=== PATIENT | female | born 1940 | race Caucasian/White ===

== ENCOUNTER 2017-11-12 20:31 | Emergency (ER) | payer OTHER ==
[~2017-11-12] VITALS: Ht 152.4 cm; Wt 59.0 kg
[~2017-11-12 20:31] MED LIST: LANTUS100 U/ML; NOVOLOG100 U/ML
[2017-11-12] MEDS ORDERED: NOVOLOG100 UNIT/1 (21:01)
[2017-11-12] MEDS ORDERED: LANTUS SOL100 UNIT/1 (21:01)
[2017-11-12] MEDS ORDERED: DIOVAN160 M1 (21:01)
[2017-11-12] MEDS ORDERED: TOPROL XL25 MG (21:02)
[2017-11-12] MEDS ORDERED: NIFE60TA3 (21:02)
[2017-11-12] MEDS ORDERED: SKELAXIN800 MG PO (22:51)
[2017-11-12] MEDS ORDERED: CELEBREX100 MG PO (22:51)
== END 2017-11-12 23:02 | disposition home or self-care (01) ==
LOC: ER 20:31
DX: M54.2 Cervicalgia (principal)

== ENCOUNTER 2017-11-30 15:59 | Emergency (ER) | payer OTHER ==
[~2017-11-30] VITALS: Ht 152.4 cm; Wt 59.0 kg
[~2017-11-30 15:59] MED LIST changes: +CELEBREX100 MG PO; +DIOVAN160 M1; +LANTUS SOL100 UNIT/1; +NIFE60TA3; +NOVOLOG100 UNIT/1; +SKELAXIN800 MG PO; +TOPROL XL25 MG
== END 2017-11-30 17:34 | disposition home or self-care (01) ==
LOC: ER 15:59
DX: L30.8 Other specified dermatitis (principal)

== ENCOUNTER 2018-01-30 18:09 | Emergency (ER) | payer OTHER ==
[~2018-01-30] VITALS: Ht 152.4 cm; Wt 59.0 kg
== END 2018-01-30 20:06 | disposition home or self-care (01) ==
LOC: ER 18:09
DX: K29.60 Other gastritis without bleeding (principal); R10.13 Epigastric pain

== ENCOUNTER 2020-08-20 10:46 | Outpatient (CLI) | payer OTHER | END 2020-08-20 10:54 | disposition home or self-care (01) | LOC: MRI 10:46 | PROVIDERS: ATTEND Internal Medicine | DX: G93.89 Other specified disorders of brain (principal); I67.2 Cerebral atherosclerosis; I65.29 Occlusion and stenosis of unspecified carotid artery | CPT/HCPCS: 70551 ==